=== PATIENT | female | born 1950 | race Caucasian/White ===

== ENCOUNTER 2022-12-07 06:36 | Day surgery (SDC) | payer MEDICARE ==
[~2022-12-07] VITALS: Ht 170.2 cm; Wt 117.0 kg
[~2022-12-07 06:36] MED LIST: B COMPLE2 PO; CETIRIZINE10 MG PO; D31000 UNIT PO; ESCITALOPRAM OX10 MG PO; GABAPENTIN100 MG PO; HYDROCHLOROTH12.5 MG PO; LANTUS100 UNIT SC; MILK THISTLE1000 MG PO; POTASSIUM99 MG PO; PROTONIX20 M1 PO; ROPINIROLE0.5 MG PO; SILYMARIN PO; STOOL SOFTENER100 M2 PO; TRAMADOL HCL50 MG PO; VITAMIN C500 M6 PO
[2022-12-07 08:58] VITALS: BP 130/74
== END 2022-12-07 09:16 | disposition home or self-care (01) ==
LOC: ORM 06:36
PROVIDERS: ATTEND Internal Medicine Gastroenterology
PROC: 0DB58ZX Excision of Esophagus, Via Natural or Artificial Opening Endoscopic, Diagnostic (ICD-10-PCS; principal; 2022-12-07)
PROC: 0DB68ZX Excision of Stomach, Via Natural or Artificial Opening Endoscopic, Diagnostic (ICD-10-PCS; 2022-12-07)
PROC: 0D758ZZ Dilation of Esophagus, Via Natural or Artificial Opening Endoscopic (ICD-10-PCS; 2022-12-07)
DX: K22.2 Esophageal obstruction (principal); K74.60 Unspecified cirrhosis of liver; K31.7 Polyp of stomach and duodenum; K44.9 Diaphragmatic hernia without obstruction or gangrene; K29.50 Unspecified chronic gastritis without bleeding; K21.9 Gastro-esophageal reflux disease without esophagitis; Z87.19 Personal history of other diseases of the digestive system

== ENCOUNTER 2023-03-09 20:01 | Emergency (ER) | payer MEDICARE ==
[~2023-03-09] VITALS: Ht 170.2 cm; Wt 108.0 kg
[2023-03-09 21:08] LABS: BASO% 0.2 % (0-3); EOS% 1.4 % (0-8); HEMATOCRIT 40.1 % (37.0-47.0); HEMOGLOBIN 13.3 g/dl (12.0-16.0); LYMPH% 8.7 % (15-41); MEAN CELL VOLUME 96.9 fL CALC (80.0-100.0); MEAN CORPUSCULAR HGB 32.1 pG CALC (26.0-32.0); MEAN CORPUSCULAR HGB CONC 33.2 g/dL CAL (32.0-36.0); MONO% 8.5 % (2-13); NEUT# 3.92 thou/uL (2.00-7.15); NEUT% 81.2 % (42-76); RED BLOOD COUNT 4.14 mill/uL (4.20-5.60); RED CELL DISTRI WIDTH 14.4 % (11.5-15.5)
[2023-03-09 21:09] LABS: URINE BILIRUBIN - DIPSTICK NEGATIVE (NEGATIVE); URINE BLOOD DIPSTICK TRACE-INTACT (NEGATIVE); URINE COLOR YELLOW; URINE GLUCOSE - DIPSTICK NEGATIVE (NEGATIVE); URINE KETONE TRACE mg/dL (NEGATIVE); URINE PROTEIN - DIPSTICK TRACE mg/dL (NEG-TRACE); URINE SPECIFIC GRAVITY >=1.030
[2023-03-09 21:14] LABS: URINE NITRITE - DIPSTICK NEGATIVE (Negative)
[2023-03-09 21:15] LABS: URINE LEUK ESTERASE SMALL (NEGATIVE)
[2023-03-09 21:22] LABS: URINE SQUAMOUS EPITHELIAL CELL FEW EPI/hpf (0-FEW)
[2023-03-09 21:25] LABS: ALKALINE PHOSPHATASE 168 u/l (38-126); AMYLASE 75 u/l (30-110); ANION GAP 11 (6-22 (CALC)); BILIRUBIN, TOTAL 1.8 mg/dL (0.02-1.3); BUN 13 mg/dL (8-23); BUN/CREATININE RATIO 23 (12-20 (CALC)); CARBON DIOXIDE 27 mmol/l (22-30); CHLORIDE 103 mmol/l (95-108); CREATININE 0.6 mg/dL (0.5-1.0); GFR FOR AFR.AMER. > 60 ML/MIN (>=60 (CALC)); GFR OTHER RACES > 60 ML/MIN (>=60 (CALC)); LIPASE 195 u/l (23-300); POTASSIUM 3.5 mmol/l (3.5-5.1); SGOT/AST 64 u/l (9-36); SODIUM 137 mmol/l (137-146); TOTAL PROTEIN 7.3 g/dL (6.3-8.2)
[2023-03-09] MEDS ORDERED: STOOL SOFTENER100 M1 PO (22:13)
[2023-03-10] MEDS ORDERED: CIPROFLOXACN500 MG PO (01:45)
[2023-03-10] MEDS ORDERED: METRONIDAZOLE500 MG PO (01:45)
[2023-03-10] MEDS ORDERED: ONDANSETRON4 MG PO (01:45)
[2023-03-10 01:51] VITALS: BP 131/71
== END 2023-03-10 02:02 | disposition home or self-care (01) ==
LOC: ED 20:01
PROVIDERS: Emergency Medicine
DX: N39.0 Urinary tract infection, site not specified (principal); K57.32 Diverticulitis of large intestine without perforation or abscess without bleeding; E87.20 Acidosis, unspecified; E11.9 Type 2 diabetes mellitus without complications; F32.A Depression, unspecified; Z79.4 Long term (current) use of insulin
CPT/HCPCS: Q9967